=== PATIENT | female | born 1945 | race Caucasian/White ===

== ENCOUNTER 2018-05-07 14:35 | Outpatient (CLI) | payer MEDICARE, OTHER ==
[2018-05-07 16:27] LABS: #Basophils 0.1 thou/uL (0.0-0.2); #Eosinphils 0.1 thou/uL (0.0-0.7); #Lymphocytes 1.7 thou/uL (1.20-3.40); #Monocytes 0.6 thou/uL (0.11-0.59); #Neutrophils 4.3 thou/uL (1.40-6.50); %Basophils 1.3 % (0.0-1.0); %Eosinophils 1.8 % (0.0-10.0); %Lymphocytes 25.3 % (21.0-51.0); %Monocytes 8.9 % (0.0-10.0); %Neutrophils 62.7 % (42.0-75.0); Hemoglobin 13.9 g/dL (12.0-16.0); Mean Corpuscular HGB CONC 32.9 g/dL (32.0-36.0); Mean Corpuscular Hemoglobin 31.2 pg (27.0-31.0); Mean Platelet Volume 8.8 fL (7.4-10.4); Platelet Count 208 thou/uL (130-400); RBC Distribution Width 12.1 % (11.5-14.5); Red Blood Cell (RBC) Count 4.45 mill/uL (4.20-5.40); White Blood Cell (WBC) Count 6.8 thou/uL (4.8-10.8)
[2018-05-07 16:42] LABS: ALT (SGPT) 10 U/L (8-55); AST (SGOT) 17 U/L (5-34); Alkaline Phosphatase 72 U/L (40-150); Anion Gap 13 mmol/L (10-20); BUN (Urea Nitrogen) 15 mg/dL (9.8-20.1); Bilirubin, Direct 0.3 mg/dL (0.1-0.3); Bilirubin, Total 0.7 mg/dL (0.2-1.2); Calc. Creatinine Clearance 0 mL/min (70-130); Calcium 9.2 mg/dL (7.8-10.44); Carbon Dioxide 27 mmol/L (23-31); Cardiac Risk 2.4 (Less than 4.5); Chloride 105 mmol/L (98-107); Cholesterol 156 mg/dl (< 200 Desired); Estimated GFR-MDRD 71; Glucose 91 mg/dL (83-110); HDL Cholesterol 65 mg/dL (>60 Neg Risk); LDL Cholesterol, Calculated 72 mg/dL; Potassium 4.4 mmol/L (3.5-5.1); Protein, Total 6.6 g/dL (6.0-8.3); Sodium 141 mmol/L (136-145); Triglycerides 96 mg/dL (Less than 150)
[2018-05-07 17:54] LABS: Bilirubin Negative (Negative); Blood, Urine Negative (Negative); Clarity Clear (Clear); Glucose, Urine (Dipstick) Negative (Negative); Leukocyte Negative (Negative); Nitrite Negative (Negative); Protein, Urine (Dipstick) Negative (Neg-Trace)
[2018-05-07 18:21] LABS: Bacteria/HPF Rare-Few HPF (None Seen); RBC/HPF 0-3 HPF (0-3); WBC/HPF 0-3 HPF (0-3)
[2018-05-07 20:28] LABS: Hemoglobin A1c 5.2 % (4.0-6.0)
== END 2018-05-07 14:36 | disposition home or self-care (01) ==
LOC: NAVSJIPCSP 14:35
PROVIDERS: ATTEND Family Medicine
DX: E78.00 Pure hypercholesterolemia, unspecified (principal); R30.0 Dysuria; J45.909 Unspecified asthma, uncomplicated; J44.0 Chronic obstructive pulmonary disease with (acute) lower respiratory infection; E55.9 Vitamin D deficiency, unspecified; Z79.899 Other long term (current) drug therapy; Z86.73 Personal history of transient ischemic attack (TIA), and cerebral infarction without residual deficits
CPT/HCPCS: 80048; 80061; 80076; 81001; 83036; 84443; 85025

== ENCOUNTER 2021-10-27 14:14 | Outpatient (CLI) | payer MEDICARE | END 2021-10-27 14:15 | disposition home or self-care (01) | LOC: NAV RAD 14:14 | PROVIDERS: ATTEND Family Medicine | DX: M79.601 Pain in right arm (principal); W19.XXXA Unspecified fall, initial encounter ==

== ENCOUNTER 2024-01-08 07:15 | Inpatient (IN) | payer MEDICARE ==
[2024-01-08] MEDS ORDERED: Acetaminophen 325 MG TAB PO PRN (15:57)
[2024-01-08] MEDS ORDERED: tiZANidine HCl 4 MG TAB PO PRN (16:00)
[2024-01-08] MEDS ORDERED: Diazepam 5 MG TAB PO PRN (16:00)
[2024-01-08] MEDS ORDERED: Bisacodyl 5 MG TAB PO PRN (16:03)
[2024-01-08] MEDS ORDERED: Senokot S 8.6-50 MG TAB PO PRN (16:03)
[2024-01-09 13:36] VITALS: BMI 24.0
[2024-01-09] MEDS: Dexamethasone 4 MG TAB PO SCH (13:55)
[2024-01-09] MEDS: Famotidine 20 MG TAB PO SCH (13:57)
[2024-01-09] MEDS: Dexamethasone 1 MG TAB PO SCH (13:57)
[2024-01-09] MEDS: cloNIDine 0.1 MG TAB PO PRN (14:18)
[2024-01-10] MEDS: Midodrine HCl 5 MG TAB PO SCH (07:21)
[2024-01-10] MEDS: traMADol HCl 50 MG TAB PO PRN (07:23)
[2024-01-10] MEDS: HYDROcodone/Acetaminophen 5/325 mg Tablet PO PRN (12:33)
[2024-01-10] MEDS: Dexamethasone 1 MG TAB PO SCH (12:33)
[2024-01-10] MEDS: Nicotine 14 MG PATCH TD SCH (12:35)
[2024-01-10 19:31] VITALS: BP 144/70; TEMP 97.6
[2024-01-11] MEDS ORDERED: Dexamethasone 1 MG TAB PO SCH (18:00)
== END 2024-01-10 23:53 | disposition short-term general hospital (02) | DRG 948 ==
LOC: NAV ACUTE 01-09 12:58
PROVIDERS: ADMIT Family Medicine; ATTEND Family Medicine
DX: R53.81 Other malaise (principal); E78.5 Hyperlipidemia, unspecified; E55.9 Vitamin D deficiency, unspecified; N18.32 Chronic kidney disease, stage 3b; M50.30 Other cervical disc degeneration, unspecified cervical region; I12.9 Hypertensive chronic kidney disease with stage 1 through stage 4 chronic kidney disease, or unspecified chronic kidney disease; I95.1 Orthostatic hypotension; F17.210 Nicotine dependence, cigarettes, uncomplicated; Z90.89 Acquired absence of other organs; Z90.49 Acquired absence of other specified parts of digestive tract; Z90.710 Acquired absence of both cervix and uterus; Z90.722 Acquired absence of ovaries, bilateral; Z98.890 Other specified postprocedural states; Z83.3 Family history of diabetes mellitus; Z82.49 Family history of ischemic heart disease and other diseases of the circulatory system; Z88.5 Allergy status to narcotic agent; Z88.8 Allergy status to other drugs, medicaments and biological substances; Z71.6 Tobacco abuse counseling
CPT/HCPCS: 36416; 70450; J8540

== ENCOUNTER 2024-01-10 23:53 | Emergency (ER) | payer MEDICARE ==
[2024-01-11 00:17] LABS: #Basophils 0.1 thou/uL (0.0-0.2); #Lymphocytes 0.9 thou/uL (1.20-3.40); #Monocytes 0.8 thou/uL (0.11-0.59); #Neutrophils 9.5 thou/uL (1.40-6.50); %Basophils 0.9 % (0.0-1.0); %Eosinophils 0.1 % (0.0-10.0); %Lymphocytes 7.7 % (21.0-51.0); %Monocytes 6.9 % (0.0-10.0); %Neutrophils 84.5 % (42.0-75.0); Hematocrit 38.2 % (36.0-47.0); Hemoglobin 13.2 g/dL (12.0-16.0); Mean Corpuscular HGB CONC 34.5 g/dL (32.0-36.0); Mean Corpuscular Hemoglobin 32.4 pg (27.0-31.0); Mean Corpuscular Volume 93.8 fl (78.0-98.0); Mean Platelet Volume 7.5 fL (7.4-10.4); Platelet Count 285 10x3/uL (130-400); RBC Distribution Width 11.9 % (11.5-14.5); Red Blood Cell (RBC) Count 4.08 mill/uL (4.20-5.40); White Blood Cell (WBC) Count 11.2 10x3/uL (4.8-10.8)
[2024-01-11 00:18] LABS: INR-International Normal Ratio 0.9; Prothrombin Time 12.7 sec (12.0-14.7)
[2024-01-11 00:33] LABS: Troponin I 0.011 ng/mL (< 0.028)
[2024-01-11 00:35] LABS: ALT (SGPT) 22 U/L (8-55); AST (SGOT) 26 U/L (5-34); Albumin 3.4 g/dL (3.4-4.8); Alkaline Phosphatase 56 U/L (40-110); Anion Gap 13 mmol/L (10-20); BUN (Urea Nitrogen) 24 mg/dL (9.8-20.1); Bilirubin, Total 0.5 mg/dL (0.2-1.2); CK (CPK) 157 U/L (29-168); Calc. Creatinine Clearance 0 mL/min (70-130); Calcium 8.5 mg/dL (7.8-10.44); Carbon Dioxide 26 mmol/L (23-31); Chloride 91 mmol/L (98-107); Estimated GFR 77; Globulin 2.7 g/dL (2.4-3.5); Glucose 131 mg/dL (83-110); Potassium 4.4 mmol/L (3.5-5.1); Protein, Total 6.1 g/dL (5.8-8.1); Sodium 126 mmol/L (136-145)
[2024-01-11 00:40] LABS: Bilirubin Negative (Negative); Blood, Urine Trace (Negative); Clarity Clear (Clear); Glucose, Urine (Dipstick) Negative (Negative); Ketone, Urine Negative (Negative); Leukocyte Negative (Negative); Nitrite Negative (Negative); Protein, Urine (Dipstick) Negative (Neg-Trace); Specific Gravity, Urine 1.015 (1.005-1.030); Urobilinogen 0.2 mg/dL (Less than 2)
[2024-01-11 00:46] LABS: Bacteria/HPF None Seen HPF (None Seen); CAUTI Indications for Culture Alt mental st,lethar; RBC/HPF None Seen HPF (0-3); Squamous Epithelial None Seen HPF (0-3); Urine Culture Reflex No No; WBC/HPF None Seen HPF (0-3)
[2024-01-11] MEDS ORDERED: Sodium Chloride 0.9% 500 ML ONE (00:46)
== END 2024-01-11 01:33 | disposition short-term general hospital (02) ==
LOC: NAV ERS 23:53
DX: R41.82 Altered mental status, unspecified (principal); J44.9 Chronic obstructive pulmonary disease, unspecified; F17.210 Nicotine dependence, cigarettes, uncomplicated
CPT/HCPCS: 51701; 81001; 82550; 84443; 84484; 85610; 85730; 93005; 94760; J7030

== ENCOUNTER 2025-08-20 08:53 | Inpatient (IN) | payer MEDICARE ==
[2025-08-20] MEDS: FLU (Fluad Triv) 25-26 (65UP)PF 45 MCG/0.5 ML Syringe IM ONE (16:04)
[2025-08-20] MEDS: Acetaminophen 325 MG TAB PO PRN (20:22)
[2025-08-20] MEDS ORDERED: Melatonin 3 MG TAB PO PRN (21:00)
[2025-08-20] MEDS ORDERED: Famotidine 20 MG TAB PO SCH (21:00)
[2025-08-20] MEDS: Famotidine 20 MG TAB PO SCH (23:43)
[2025-08-21 06:04] LABS: #Basophils 0.1 thou/uL (0.0-0.2); #Eosinophils 0.2 thou/uL (0.0-0.7); #Lymphocytes 1.2 thou/uL (1.20-3.40); #Monocytes 0.6 thou/uL (0.11-0.59); #Neutrophils 4.0 thou/uL (1.40-6.50); %Basophils 1.4 % (0.0-1.0); %Eosinophils 2.9 % (0.0-10.0); %Lymphocytes 19.5 % (21.0-51.0); %Monocytes 10.5 % (0.0-10.0); %Neutrophils 65.7 % (42.0-75.0); Hematocrit 29.9 % (36.0-47.0); Hemoglobin 10.7 g/dL (12.0-16.0); Mean Corpuscular Hemoglobin 31.9 pg (27.0-31.0); Mean Corpuscular Volume 88.9 fl (78.0-98.0); Platelet Count 253 10x3/uL (130-400); Red Blood Cell (RBC) Count 3.37 mill/uL (4.20-5.40); White Blood Cell (WBC) Count 6.1 10x3/uL (4.8-10.8)
[2025-08-21 06:13] LABS: ALT (SGPT) 7 U/L (Less than 34); AST (SGOT) 20 U/L (11-34); Albumin 2.5 g/dL (3.1-4.5); Alkaline Phosphatase 50 U/L (40-110); Anion Gap 14 mmol/L (10-20); BUN (Urea Nitrogen) 18 mg/dL (9.8-20.1); Bilirubin, Total 0.9 mg/dL (0.3-1.2); Calc. Creatinine Clearance 59 mL/min (70-130); Calcium 8.6 mg/dL (7.8-10.44); Carbon Dioxide 24 mmol/L (23-31); Chloride 101 mmol/L (98-107); Globulin 3.1 g/dL (2.4-3.5); Glucose 90 mg/dL (83-110); Potassium 4.0 mmol/L (3.5-5.1); Sodium 135 mmol/L (136-145)
[2025-08-21] MEDS: Famotidine 20 MG TAB PO SCH ×2 (10:28→21:24)
[2025-08-21] MEDS: Senokot S 8.6-50 MG TAB PO PRN (15:53)
[2025-08-22] MEDS: Aspirin 81 mg Enteric Coated Tablet PO SCH (10:32)
[2025-08-30 06:07] LABS: #Basophils 0.1 thou/uL (0.0-0.2); #Eosinophils 0.3 thou/uL (0.0-0.7); #Lymphocytes 1.4 thou/uL (1.20-3.40); #Monocytes 1.1 thou/uL (0.11-0.59); #Neutrophils 6.3 thou/uL (1.40-6.50); %Basophils 1.1 % (0.0-1.0); %Eosinophils 3.2 % (0.0-10.0); %Lymphocytes 15.4 % (21.0-51.0); %Monocytes 12.2 % (0.0-10.0); %Neutrophils 68.0 % (42.0-75.0); Hematocrit 28.4 % (36.0-47.0); Hemoglobin 10.1 g/dL (12.0-16.0); Mean Corpuscular Hemoglobin 31.9 pg (27.0-31.0); Mean Corpuscular Volume 89.7 fl (78.0-98.0); Platelet Count 452 10x3/uL (130-400); Red Blood Cell (RBC) Count 3.16 mill/uL (4.20-5.40); White Blood Cell (WBC) Count 9.2 10x3/uL (4.8-10.8)
[2025-08-30 06:18] LABS: Anion Gap 16 mmol/L (10-20); BUN (Urea Nitrogen) 25 mg/dL (9.8-20.1); Calc. Creatinine Clearance 46 mL/min (70-130); Calcium 8.6 mg/dL (7.8-10.44); Carbon Dioxide 24 mmol/L (23-31); Chloride 102 mmol/L (98-107); Glucose 100 mg/dL (83-110); Potassium 3.5 mmol/L (3.5-5.1); Sodium 138 mmol/L (136-145)
[2025-09-06 06:26] VITALS: BMI 22.5
[2025-09-07 06:06] LABS: Anion Gap 15 mmol/L (10-20); BUN (Urea Nitrogen) 25 mg/dL (9.8-20.1); Calc. Creatinine Clearance 43 mL/min (70-130); Calcium 8.9 mg/dL (7.8-10.44); Carbon Dioxide 27 mmol/L (23-31); Chloride 101 mmol/L (98-107); Glucose 99 mg/dL (83-110); Potassium 3.8 mmol/L (3.5-5.1); Sodium 139 mmol/L (136-145)
[2025-09-16 06:02] LABS: #Basophils 0.1 thou/uL (0.0-0.2); #Eosinophils 0.3 thou/uL (0.0-0.7); #Lymphocytes 1.1 thou/uL (1.20-3.40); #Monocytes 0.7 thou/uL (0.11-0.59); #Neutrophils 4.8 thou/uL (1.40-6.50); %Basophils 1.3 % (0.0-1.0); %Eosinophils 3.7 % (0.0-10.0); %Lymphocytes 15.9 % (21.0-51.0); %Monocytes 10.1 % (0.0-10.0); %Neutrophils 69.0 % (42.0-75.0); Hematocrit 31.0 % (36.0-47.0); Hemoglobin 11.0 g/dL (12.0-16.0); Mean Corpuscular Hemoglobin 31.2 pg (27.0-31.0); Mean Corpuscular Volume 88.2 fl (78.0-98.0); Platelet Count 293 10x3/uL (130-400); Red Blood Cell (RBC) Count 3.51 mill/uL (4.20-5.40); White Blood Cell (WBC) Count 7.0 10x3/uL (4.8-10.8)
[2025-09-16 06:11] LABS: Anion Gap 15 mmol/L (10-20); BUN (Urea Nitrogen) 24 mg/dL (9.8-20.1); Calc. Creatinine Clearance 41 mL/min (70-130); Calcium 8.7 mg/dL (7.8-10.44); Carbon Dioxide 24 mmol/L (23-31); Chloride 103 mmol/L (98-107); Glucose 103 mg/dL (83-110); Potassium 3.6 mmol/L (3.5-5.1); Sodium 138 mmol/L (136-145)
[2025-09-17] MEDS: Famotidine 20 MG TAB PO SCH (09:54)
[2025-09-22 20:53] VITALS: BMI 22.6
[2025-09-22 21:47] VITALS: TEMP 98
[2025-09-23 10:02] VITALS: BP 108/66
== END 2025-09-23 11:09 | disposition home health service (06) | DRG 945 ==
LOC: NAV ACUTE 14:40
PROVIDERS: ADMIT Student in an Organized Health Care Education/Training Program; ATTEND Student in an Organized Health Care Education/Training Program
PROC: F07Z9ZZ Gait Training/Functional Ambulation Treatment (ICD-10-PCS; principal; 2025-08-20)
DX: R53.1 Weakness (principal); E43 Unspecified severe protein-calorie malnutrition; E87.1 Hypo-osmolality and hyponatremia; I95.1 Orthostatic hypotension; E55.9 Vitamin D deficiency, unspecified; N18.32 Chronic kidney disease, stage 3b; E78.5 Hyperlipidemia, unspecified; I12.9 Hypertensive chronic kidney disease with stage 1 through stage 4 chronic kidney disease, or unspecified chronic kidney disease; K59.00 Constipation, unspecified; Z90.49 Acquired absence of other specified parts of digestive tract; Z90.710 Acquired absence of both cervix and uterus; Z98.890 Other specified postprocedural states; Z98.1 Arthrodesis status; Z88.5 Allergy status to narcotic agent; Z88.8 Allergy status to other drugs, medicaments and biological substances; Z91.041 Radiographic dye allergy status; Z68.22 Body mass index [BMI] 22.0-22.9, adult; Z79.899 Other long term (current) drug therapy; Z23 Encounter for immunization
CPT/HCPCS: 36415; 80048; 80053; 85025